=== PATIENT | male | born 1985 | race Caucasian/White ===

== ENCOUNTER 2022-12-22 10:59 | Emergency (ER) | payer OTHER, SELFPAY ==
--- NOTE | ~2022-12-22 | XR_ITS ---
Left foot Technique: AP, oblique, and lateral views were obtained. Clinical History: Pain Findings: No acute fracture or dislocation is seen. Osseous alignment is anatomic. There is fusion of the third distal and middle phalanges. Remaining joint spaces are preserved without erosive or degen erative change. Soft tissues are unremarkable. Impression: No acute abnormality. Fusion of the third middle and distal phalanges. Reviewed, dictated and finalized at location . [facility] Impression: No acute abnormality. Fusion of the third middle and distal phalanges.
[2022-12-22 11:33] VITALS: BP 135/91; PULSE 75; RESP 18; TEMP 36.6; O2SAT 99
--- NOTE | 2022-12-22 12:36 | ED.LOWEXIN ---
HPI - Extremity Injury (Lower) General Chief Complaint: Extremity Injury, Lower Stated Complaint: L. foot injury Time Seen by Provider: 12/22/22 11:36 Source: patient Mode of arrival: ambulatory Limitations: no limitations History of Present Illness HPI Narrative: This is a 37 year old male that presents to the ER for injury to the left great toe sustained just prior to arrival. He had a lift at work fall on his foot. Reports bleeding and swelling to the nail. He is not up to date on his tetanus vaccination. Denies decreased ROM or numbness. Related Data Allergies Allergy/AdvReac Type Severity Reaction Status Date / Time No Known Allergies Allergy Mild Unverified 05/26/09 19:58 Review of Systems Review of Systems: CONSTITUTIONAL: Denies fever MUSCULOSKELETAL: Reports joint pain, and myalgia. NEUROLOGIC: Denies numbness All systems reviewed & are unremarkable except as noted in HPI and below PMFSH Past Medical History Medical History (Updated 12/22/22 @ 14:30 by Karol Chou PA-C) Anxiety Family History Family History (Updated 04/11/19 @ 07:43 by DOCTOR UNKNOWN) Mother Patient's mother is in good health Father Patient's father is in good health Social History Social History (Updated 12/02/19 @ 10:06 by Natty Palmer [facility]) Smoking status: Never smoker Alcohol intake: current Alcohol use details: Pt drinks rarely. Exam Narrative: GENERAL: Well-appearing, well-nourished, and in no acute distress. HEAD: Normocephalic, atraumatic. EYES: EOMI. EXTREMITIES: Normal range of motion. Mild edema about the left great toe with contusion of the nailbed. Normal DP pulse. Normal sensation SKIN: Warm, dry, no rash. NEURO: No focal deficits. Alert and oriented x3. PSYCH: Normal mood and affect Course Vital Signs Vital signs: Vital Signs Temperature 97.9 F 12/22/22 11:33 Pulse Rate 75 12/22/22 11:33 Respiratory Rate 18 12/22/22 11:33 Blood Pressure 135/91 H 12/22/22 11:33 Pulse Oximetry 99 12/22/22 11:33 Oxygen Delivery Room Air 12/22/22 11:33 Temperature 97.9 F 12/22/22 11:33 Pulse Rate 75 02/02/23 11:33 Respiratory Rate 18 12/22/22 11:33 Blood Pressure 135/91 H 12/22/22 11:33 Pulse Oximetry 99 12/22/22 11:33 Oxygen Delivery Room Air 12/22/22 11:33 Procedures Nerve Block Nerve Block 1: Nerve block date: 12/22/22 Nerve block time: 14:33 Local Anesthetic: lidocaine 1% Amount of anesthesia used (mL): 6 Side: left Nerve Blocks: digital Procedure Successful: Yes Patient Tolerated Procedure: well and no complications Complications: none Additional Comments: Left great toe was irrigated. No lacerations noted. Covered with antibiotic ointment, Telfa, Kerlix and Coban MDM - Extremity Injury (Lower) MDM Narrative Medical decision making narrative: Patient presents to the ER for an injury to the left great toe sustained just prior to arrival. Patient is neurovascularly intact. Left foot x-ray without acute osseous abnormalities. Left great toenail with contusion, it is still largely attached. Offered patient to go ahead and remove toenail as it will likely come off eventually. He would like to leave the toenail in place at this time. Wound was irrigated. Patient updated on tetanus. Educated on wound care. He is to follow up with his PCP for wound check. He was given warnings to return to the ER Differential Diagnosis Differential diagnosis: Likely fracture of toe and other (foot fracture, nail injury) Imaging Data Radiologist's impression: ITS Impressions Foot X-Ray 12/22/22 12:07 Impression: No acute abnormality. Fusion of the third middle and distal phalanges. Critical Care Time Critical Care Time Critical Care Time: No Discharge Plan Discharge Clinical Impression: Crushing injury of toe of left foot Qualifiers: Encounter type: initial encounter Qualified
[2022-12-22] MEDS: TETANUS,DIPHTHERIA,AC PERTUSSIS ADULT (0.5 ML) BOOSTRIX IM (12:44)
[2022-12-22] MEDS: HYDROcodone/acetaminophen (*CRX) 5-325 MG TABLET 1 TAB PO (12:44)
[2022-12-22] MEDS: ONDANSETRON HCL ODT 4 MG TABLET PO (12:45)
[2022-12-22 14:45] VITALS: BP 123/75; PULSE 88; RESP 12; O2SAT 100
== END 2022-12-22 14:45 | disposition home or self-care (01) ==
PROVIDERS: Emergency Provider Physician Assistant; PCP Internal Medicine
DX: S97.112A Crushing injury of left great toe, initial encounter (principal); S90.212A Contusion of left great toe with damage to nail, initial encounter; Z23 Encounter for immunization; W24.0XXA Contact with lifting devices, not elsewhere classified, initial encounter
CPT/HCPCS: 64450; 64455; 73630; 90471; 90715; 99283; A9270